=== PATIENT | male | born 1980 ===

== ENCOUNTER 2018-12-19 15:45 | Observation (INO) | payer OTHER ==
[2018-12-19 16:09] VITALS: BMI 29.6
--- NOTE | 2018-12-19 16:19 | C.PDOC ---
Time Seen by Provider: 12/19/18 16:19 Chief Complaint (Nursing): Substance Abuse Past Medical History Vital Signs: Last Vital Signs Temp 98.7 F 12/19/18 16:17 Pulse 79 12/19/18 16:17 Resp 18 12/19/18 16:17 BP 126/74 12/19/18 16:17 Pulse Ox 97 12/19/18 16:17 ED Course And Treatment O2 Sat by Pulse Oximetry: 97 Disposition - Disposition
--- NOTE | 2018-12-19 16:39 | C.PDOC ---
History Of Present Illness 38 y/o male presents to ED requesting detox alcohol. He denies any medical complaints at this time. Time Seen by Provider: 12/19/18 16:19 Chief Complaint (Nursing): Substance Abuse History Per: Patient History/Exam Limitations: no limitations Onset/Duration Of Symptoms: Days Current Symptoms Are (Timing): Still Present Past Medical History Reviewed: Historical Data, Nursing Documentation, Vital Signs Vital Signs: Last Vital Signs Temp 98.7 F 12/19/18 16:17 Pulse 79 12/19/18 16:17 Resp 18 12/19/18 16:17 BP 126/74 12/19/18 16:17 Pulse Ox 97 12/19/18 16:17 Family History: States: No Known Family Hx Review Of Systems Except As Marked, All Systems Reviewed And Found Negative. Constitutional: Negative for: Fever, Chills Gastrointestinal: Negative for: Vomiting Psych: Positive for: Other (alcohol abuse). Negative for: Psychosis, Suicidal ideation Physical Exam - Physical Exam Appears: Non-toxic, No Acute Distress Skin: Warm, Dry Head: Normacephalic Eye(s): bilateral: Normal Inspection Oral Mucosa: Moist Neck: Supple Cardiovascular: Rhythm Regular, No Murmur Respiratory: Normal Breath Sounds, No Rales, No Rhonchi, No Wheezing Gastrointestinal/Abdominal: Soft, No Tenderness Extremity: Bilateral: Atraumatic, Normal ROM Neurological/Psych: Oriented x3, Normal Speech ED Course And Treatment - Laboratory Results Result Diagrams: 12/19/18 16:38 12/19/18 16:38 O2 Sat by Pulse Oximetry: 97 (RA) Pulse Ox Interpretation: Normal Medical Decision Making Medical Decision Making: Plan: --Labs --Urinalysis Disposition - Disposition Disposition: HOSPITALIZED Disposition Time: 19:30 Condition: STABLE - Clinical Impression Clinical Impression: Alcohol addiction - Scribe Statement The provider has reviewed the documentation as recorded by the Juni Rdz Provider Attestation: All medical record entries made by the Juni were at my direction and personally dictated by me. I have reviewed the chart and agree that the record accurately reflects my personal performance of the history, physical exam, medical decision making, and the department course for this patient. I have also personally directed, reviewed, and agree with the discharge instructions and disposition. Decision To Admit - Pt Status Changed To: Hospital Disposition Of: Observation - . Bed Request Type: Detox Admitting Physician: Da Adkins Patient Diagnosis: Alcohol addiction
[2018-12-19 16:42] LABS: BASO % 0.6 % (0.0-2.0); EOS # 0.1 K/uL (0.0-0.7); EOS % 1.4 % (0.0-4.0); HEMOGLOBIN 14.7 g/dL (12.0-18.0); LYMPH % 12.6 % (20.0-40.0); MEAN CELL VOLUME 86.4 fL (80.0-94.0); MEAN CORPUSCULAR HEMOGLOBIN 28.5 pg (27.0-31.0); MEAN PLATELET VOLUME 8.2 fL (7.2-11.7); MONO # 0.7 K/uL (0.0-0.8); MONO % 9.1 % (0.0-10.0); NEUT # 6.1 K/uL (1.8-7.0); NEUT % 76.3 % (50.0-75.0); RBC 5.17 Mil/uL (4.40-5.90)
[2018-12-19 16:44] LABS: SQUAMOUS EPITHIAL 1 /hpf (0-5); URINE BILIRUBIN NEGATIVE (NEGATIVE); URINE BLOOD 1+ (NEGATIVE); URINE CLARITY Clear (Clear); URINE COLOR Yellow (YELLOW); URINE GLUCOSE (UA) NORMAL (Normal); URINE LEUKOCYTE ESTERASE NEG Leu/uL (Negative); URINE PROTEIN NEGATIVE (NEGATIVE); URINE UROBILINOGEN NORMAL mg/dL (0.2-1.0)
[2018-12-19 16:54] LABS: ALB/GLOB RATIO 1.4 (1.0-2.1); ALBUMIN 4.9 g/dL (3.5-5.0); ALT/SGPT 63 U/L (21-72); AST/SGOT 49 U/L (17-59); BLOOD UREA NITROGEN 15 mg/dL (9-20); CALCIUM 9.5 mg/dl (8.6-10.4); GFR NON-AFRICAN AMERICAN > 60
[2018-12-19 16:57] LABS: BARBITURATES, UR NEGATIVE (NEGATIVE); BENZODIAZEPINES, UR NEGATIVE (NEGATIVE); OPIATES, UR NEGATIVE (NEGATIVE); PHENCYCLIDINE, UR NEGATIVE (NEGATIVE)
[2018-12-19 17:03] LABS: ACETAMINOPHEN < 10.0 ug/mL (10.0-30.0); SALICYLATE < 1.0 mg/dL 1
--- NOTE | 2018-12-19 19:14 | PCM.BM ---
<Jinny Artis - Last Filed: 12/19/18 19:12> Treatment Plan Problems - Problems identified on initial assessmt Anxiety related to Substance Use Date Initiated: 12/19/18 Time Initiated: 19:12 Assessment reference: NA Status: Active Defensive Coping Date Initiated: 12/19/18 Time Initiated: 19:12 Assessment reference: NA Status: Active Knowledge Deficit : alcohol Use Date Initiated: 12/19/18 Time Initiated: 19:13 Assessment reference: NA Treatment assets and liabiliti Patient Assests: ADL independent, negotiates basic needs, cognitively intact Patient Liabilities: substance abuse - Milieu Protocol Maintain good personal hygiene: daily Encourage regular showers, daily Remind patient to perform daily oral care, daily Assist patient to perform ADL's Conduct patient checks and document Observation sheet: Q15 minutes Maintain personal safety: every shift Educate patient to report safety concerns to staff, every shift Monitor environment for contraband/sharps Medication safety: Monitor for expected outcome, potential side effects: every shift, Assess barriers to learning: every shift, Assess readiness for medication education: every shift <Da Adkins - Last Filed: 12/20/18 13:32> - Diagnosis (1) Alcohol use disorder, severe, dependence Status: Acute Interventions: 12/20/18 13:32 * Assess 7x/week regarding severity of withdrawal * Educate regarding risks, benefits, side effects and alternatives of medications * Use Motivational Interviewing for abstinence * Use CBT for relapse prevention * Medication management for withdrawal symptoms * Encourage medication assisted treatment *
[2018-12-20] MEDS: Multiple Vitamins Tab PO SCH (10:46)
--- NOTE | 2018-12-20 11:52 | PCM.PSYCH ---
Initial Psychiatric Evaluation - Initial Psychiatric Evaluation Type of Admission: Voluntary Legal Status: Capacity Chief Complaint (in patient's own words): "I need detox" History of Present Illness and Precipitating Events: Patient is a 38 year old, single, unemployed LM, and has been homeless for months. He has 2 children (ages 5 and 9). He is here for alcohol detox. He started drinking alcohol at the age of 12 and started abusing alcohol at the age of 19. He consumes 8+ cans (16 oz each) beer every day. He consumes some hard liquor but "decreased" 2 years ago. He last consumed 7 cans of beer yesterday and joint of marijuana. His longest sobriety was for 10 days in 2005. He has been in detox 2 times prior for 5 days each and relapsed 2-3 days after. He has never been to rehab and wants to go this time. He wants to quit because he is homeless, unemployed and does not have a good relationship with his children. He denies of ever having suicidal ideations and has never received medical treatment for alcohol use. He feels tired and irate, but denies tremors and nausea. He also admits to smoking 2 joints of marijuana every 3 days. He denies of heroin use, smoking tobacco and last cocaine use was two and half years ago. Meds: Denies Past Psych Hx: Anxiety, depression Past Med Hx: Denies Fam Psych Hx: Father alcoholic but sober for 16 years Current Medications: Active Medications Generic Name Dose Route Start Last Admin Trade Name Freq PRN Reason Stop Dose Admin Chlordiazepoxide 25 mg 12/20/18 09:53 Librium PO Q4H PRN Alcohol Withdrawal Clonidine HCl 0.1 mg 12/20/18 09:53 Catapres PO Q4H PRN Symptoms of alcohol withdrawl Folic Acid 1 mg 12/20/18 10:00 12/20/18 10:46 Folic Acid PO 1 mg DAILY IZABELA Administration Hydroxyzine HCl 25 mg 12/19/18 20:03 Atarax PO Q6 PRN Anxiety Multivitamins 1 tab 12/20/18 10:00 12/20/18 10:46 Hexavitamin PO 1 tab DAILY IZABELA Administration Thiamine HCl 100 mg 12/20/18 10:00 12/20/18 10:46 Vitamin B1 Tab PO 100 mg DAILY IZABELA Administration Trazodone HCl 50 mg 12/19/18 22:00 Desyrel PO HS PRN Insomnia Past Psychiatric History - Past Psychiatric History Previous Treatment History: None Pertinent Medical Hx (Current Medical&Sleep Prob, Allergies): Allergies Allergy/AdvReac Type Severity Reaction Status Date / Time No Known Allergies Allergy Unverified 12/19/18 16:09 No Known Home Med 12/19/18 Review of Systems - Psychiatric Psychiatric: Abnormal Sleep Pattern, Anxiety, Difficulty Concentrating, Irritability. absent: Depression, Hallucinations, Homicidal Ideation, Paranoia, Suicidal Ideation Mental Status Examination - Personal Presentation Personal Presentation: Looks stated age - Affect Affect: Constricted - Motor Activity Motor Activity: Calm - Reliability in Providing Information Reliability in Providing Information: Good - Speech Speech: Organized - Mood Mood: Anxious - Formal Thought Process Formal Thought Process: No Impairment - Cognitive Functions Orientation: Person, Place, Situation, Time Sensorium: Alert Attention/Concentration: Easily distracted Estimate of Intelligence: Average Judgement: Intact, as evidence by: Insight regarding need for hospitalization Memory: Recent intact, as evidence by: Ability to recall events of the day, Remote intact, as evidenced by: Abilit to recall sig. life events - Risk Risk: Withdrawal, Diminished functioning - Strength & Assets Inventory Strength & Assets Inventory: Cooperative - Limitations Limitations: Other DSM 5 DX - DSM 5 DSM 5 Diagnosis: Alcohol withdrawal Alcohol use d/o - severe Cannabis use d/o - moderate - Recommended/Plan of Treatment Treatment Recommendations and Plan of Treatment: Taper with librium when he withdraws Gabapentin for augmentation if needed As needed medications All risks, benefits and alternatives of the meds discussed, and the pt agreed and understood. Attend groups and activities Supportive therapy and psychoeducation [place] for abstinence CBT for relapse prevention Encourage MAT Refer to rehab or IOP, and self-help groups Teach healthy lifestyle methods, i.e. diet, exercise, meditation Smoking cessation with [place] Nicotine patch if needed 34 min Projected ELOS: 2-4 days - Smoking Cessation Smoking Cessation Initiated: Yes
[2018-12-21 09:02] VITALS: BP 127/82; PULSE 74; RESP 18; TEMP 98; O2SAT 98
[2018-12-21] MEDS: Multiple Vitamins Tab PO SCH (09:45)
--- NOTE | 2018-12-21 09:54 | PCM.PYCHDC ---
Mental Status Examination - Mental Status Examination Orientation: Person, Place, Situation, Time Memory: Intact Mood: Anxious Affect: Constricted Speech: Appropriate Attention: WNL Concentration: WNL Association: WNL Fund of Knowledge: WNL Formal Thought Process: No Impairment Suicidal Ideation: No Current Homicidal Ideation?: No Discharge Summary - Discharge Note Reason for Hospitalization: Alcohol detox Consultations:: List each consultation separately and include: 1. Reason for request. 2. Findings. 3. Follow-up Summary of Hospital Course include:: 1. Description of specific treatment plan utilized for patients during their course of treatmen. 2. Summarize the time- course for resolution of acute symptoms and/or regressed behaviors. 3. Describe issues identified and worked on during hospitalization. 4. Describe medication utilized. 5. Describe medical problems identified and treated. 6. Reassessment of suicide risk Summary of Hospital Course: On admission: Patient is a 38 year old, single, unemployed LM, and has been homeless for months. He has 2 children (ages 5 and 9). He is here for alcohol detox. He started drinking alcohol at the age of 12 and started abusing alcohol at the age of 19. He consumes 8+ cans (16 oz each) beer every day. He consumes some hard liquor but "decreased" 2 years ago. He last consumed 7 cans of beer yesterday and joint of marijuana. His longest sobriety was for 10 days in 2005. He has been in detox 2 times prior for 5 days each and relapsed 2-3 days after. He has never been to rehab and wants to go this time. He wants to quit because he is homeless, unemployed and does not have a good relationship with his children. He denies of ever having suicidal ideations and has never received medical treatment for alcohol use. He feels tired and irate, but denies tremors and nausea. He also admits to smoking 2 joints of marijuana every 3 days. He denies of heroin use, smoking tobacco and last cocaine use was two and half years ago. Meds: Denies Past Psych Hx: Anxiety, depression Past Med Hx: Denies Fam Psych Hx: Father alcoholic but sober for 16 years Hospital course: The pt was admitted and started on treatment with psychotherapy, support, psychoeducation and medications. [place] and CBT used. The pt attended groups and activities, as well as milieu therapy. All the risks and benefits of medications are discussed and the patient understood and agreed. The pt improved with the treatments provided. After care discussed with the patient. [facility] will go to [facility] in . - Final Diagnosis (DSM 5) Condition upon Discharge: STABLE DSM 5: Alcohol withdrawal Alcohol use d/o - severe Cannabis use d/o - moderate Disposition: HOME/ ROUTINE Follow-up Treatment Plan: Continue below medications after discharge. Follow after care plan as discussed. Use relapse prevention skills Return to ER or call 911 if suicidal, homicidal or symptoms relapse. Stay away from stress, alcohol and drugs. See primary doctor regularly and get labs. Prescriptions/Medication Reconciliation: traZODone [Desyrel] 50 mg PO HS PRN #30 tab PRN Reason: Insomnia
== END 2018-12-21 10:45 | disposition home or self-care (01) ==
LOC: C.ER 15:45 → C.7D 18:44
PROVIDERS: ADMIT Psychiatry & Neurology Psychiatry; ATTEND Psychiatry & Neurology Psychiatry
DX: F10.239 Alcohol dependence with withdrawal, unspecified (principal); F12.90 Cannabis use, unspecified, uncomplicated; F17.200 Nicotine dependence, unspecified, uncomplicated; Z59.0 Homelessness; Y90.0 Blood alcohol level of less than 20 mg/100 ml
CPT/HCPCS: 80053; 80320; 80324; 80329; 80345; 80346; 80349; 80353; 80358; 80361; 81001; 83735; 83992; 84100; 85025; 99283; G0378